=== PATIENT | female | born 1980 | race Two or more races ===

== ENCOUNTER 2017-01-17 11:19 | Outpatient (CLI) | payer MEDICAID ==
[2017-01-17 11:36] VITALS: BMI 26.0
[2017-01-17 11:49] LABS: URINE BILIRUBIN NEGATIVE (NEGATIVE); URINE BLOOD 3+ (NEGATIVE); URINE GLUCOSE (UA) NEGATIVE (NEGATIVE); URINE LEUKOCYTE ESTERASE 2+ (NEGATIVE); URINE NITRITE NEGATIVE (NEGATIVE); URINE PROTEIN 1+ (NEGATIVE); URINE UROBILINOGEN 1 mg/dL (0-1 mg/dl)
[2017-01-17 11:51] LABS: URINE APPEARANCE HAZY; URINE COLOR YELLOW
[2017-01-17 11:57] LABS: URINE BACTERIA 1+; URINE EPITHELIAL CELLS 20-30 /hpf; URINE MUCUS 2+
[2017-01-17] MEDS ORDERED: CEPHALEXIN 500 MG CAPSULE PO ONE (12:15)
--- NOTE | 2017-01-17 13:45 | US ---
OB TRANSVAGINAL HISTORY: Contractions. Check cervical length. COMPARISONS: None FINDINGS: Local grayscale, color-flow and duplex Doppler images during Limited OB ultrasound are obtained. Single intrauterine gestation is identified in a cephalic position. Placenta is right, and anterior. Cervix measures 3.88 cm and is closed. No evidence of funneling. Estimated date of delivery is 05/09/2017. Gestational age is 24 weeks and 0 days. heart tones are present at 160 bpm. IMPRESSION: Normal cervix. heart tones at 160 bpm. Findings were called to Librado, the patient's nurse at approximately 1342 hours on 01/17/2017.
[2017-01-17] MEDS ORDERED: BETAMETHASONE ACET 6 MG/ML 5ML VIAL IM ONE (14:54)
== END 2017-01-17 15:25 | disposition home or self-care (01) ==
LOC: FBCOUT 11:19 → FBC 11:19 → FBCOUT 15:25
PROVIDERS: ATTEND Family Medicine
DX: O60.00 Preterm labor without delivery, unspecified trimester (principal); Z3A.00 Weeks of gestation of pregnancy not specified
CPT/HCPCS: 96372; 87086; 82731; 81001; 76817; 59050; J0702; A9270; G0463

== ENCOUNTER 2017-01-18 15:08 | Outpatient (CLI) | payer MEDICAID ==
[2017-01-18] MEDS: BETAMETHASONE ACET 6 MG/ML 5ML VIAL IM ONE (15:37)
== END 2017-01-18 15:55 | disposition home or self-care (01) ==
LOC: FBCOUT 15:08 → FBC 15:08 → FBCOUT 15:55
PROVIDERS: ATTEND Family Medicine
DX: O60.00 Preterm labor without delivery, unspecified trimester (principal); Z3A.00 Weeks of gestation of pregnancy not specified